=== PATIENT | female | born 1990 | race Two or more races ===

== ENCOUNTER 2021-10-10 05:45 | Inpatient (IN) | payer OTHER ==
[2021-10-10 06:35] VITALS: BMI 27.6
[2021-10-10] MEDS ORDERED: DEXTROSE 5%-LACTATED RINGERS 1,000 ML IV SCH (08:00)
[2021-10-10] MEDS ORDERED: DINOPROSTONE 10 MG VAGINAL SUPPOSITORY VG ONE (08:15)
[2021-10-10 09:43] LABS: BASO % 0.3 % (0-2.0); EOS % 0.3 % (0-4.5); HEMATOCRIT 32.9 % (32.4-45.2); HEMOGLOBIN 11.8 GM/dL (10.7-15.3); LYMPH % 18.1 % (8-40); MCH 31.1 pg (25.7-33.7); MCHC 35.7 g/dl (32.0-36.0); MEAN PLT VOLUME 8.8 fl (7.5-11.1); MONO % 8.5 % (3.8-10.2); NEUT % 72.8 % (42.8-82.8); PLATELET COUNT 232 10^3/uL (134-434); RBC 3.79 M/mm3 (3.60-5.2); RDW 13.4 % (11.6-15.6); WHITE BLOOD COUNT 8.4 K/mm3 (4.0-10.0)
[2021-10-10 09:50] LABS: INR 0.98 (0.83-1.09); PROTHROMBIN TIME (PATIENT) 11.3 SEC (9.7-13.0)
[2021-10-10 10:02] LABS: BLOOD UREA NITROGEN 8.1 mg/dL (7-18); CALCIUM 8.2 mg/dL (8.5-10.1)
[2021-10-10 10:06] LABS: CREATININE 0.7 mg/dL (0.55-1.3)
[2021-10-10] MEDS ORDERED: PROMETHAZINE HCL 25 MG/1 ML VIAL ONE (13:38)
[2021-10-10] MEDS ORDERED: BUTORPHANOL TARTRATE 2 MG/ML VIAL ONE (13:38)
[2021-10-10] MEDS ORDERED: PROMETHAZINE HCL 25 MG/1 ML VIAL IVPB ONE (14:30)
[2021-10-10] MEDS ORDERED: BUTORPHANOL TARTRATE 2 MG/ML VIAL IVPB ONE (14:30)
[2021-10-10] MEDS ORDERED: FENTANYL/BUPIVACAINE/NS/PF - PCEA - 50 ML DISP.SYRIN EP ONE ×3 (15:54→23:54)
[2021-10-10] MEDS ORDERED: OXYTOCIN 30 UNITS in 0.9% NS 30 UNIT/500 ML INFUS.BAG IVPB SCH (16:00)
[2021-10-10] MEDS ORDERED: BUPIVACAINE HCL/PF 0.25% (2.5MG/ML) 10 ML VIAL ONE (16:21)
[2021-10-10] MEDS ORDERED: PHENYLEPHRINE HCL 10 MG/1 ML SINGLE DOSE VIAL ONE (16:37)
[2021-10-10] MEDS ORDERED: OXYTOCIN 30 UNITS in 0.9% NS 30 UNIT/500 ML INFUS.BAG IVPB ONE ×2 (16:48→16:50)
[2021-10-10] MEDS ORDERED: NALOXONE HCL 0.4 MG/ML VIAL IVPUSH PRN (16:50)
[2021-10-10] MEDS ORDERED: FENTANYL/BUPIVACAINE/NS/PF - PCEA - 50 ML DISP.SYRIN EP SCH (17:00)
[2021-10-10] MEDS ORDERED: OXYTOCIN 20 UNITS in 0.9% NS 20 UNIT/1,000 ML INFUS.BAG IV ONE (20:11)
[2021-10-10] MEDS ORDERED: LIDOCAINE HCL 1% PRESERVATIVE FREE - 30ML VIAL ONE (20:11)
[2021-10-10] MEDS ORDERED: AMPICILLIN SODIUM 2 GM VIAL ONE (21:47)
[2021-10-10] MEDS ORDERED: ELECTROLYTE-148 SOLN 1,000 ML IV SCH (22:00)
[2021-10-10] MEDS ORDERED: AMPICILLIN - 2 GM in SODIUM CHLORIDE 100 ML IVPB ONE (22:00)
[2021-10-11] MEDS ORDERED: AMPICILLIN SODIUM 1 GM VIAL ONE (00:52)
[2021-10-11] MEDS ORDERED: AMPICILLIN - 1 GM in SODIUM CHLORIDE 100 ML IVPB SCH (02:00)
[2021-10-11] MEDS ORDERED: IBUPROFEN 600 MG TABLET (FP) PO ONE ×2 (05:00→05:06)
[2021-10-11] MEDS ORDERED: METHYLERGONOVINE MALEATE 0.2 MG/1 ML AMP IM PRN (07:02)
[2021-10-11] MEDS ORDERED: ACETAMINOPHEN 325 MG TABLET (FP) PO PRN (07:02)
[2021-10-11] MEDS ORDERED: BENZOCAINE 20% 57 GM BOTTLE TP PRN (07:02)
[2021-10-11] MEDS ORDERED: WITCH HAZEL 50% (TUCKS) 40 PAD/JAR PAD TP PRN (07:02)
[2021-10-11] MEDS ORDERED: BISACODYL 10 MG SUPP.RECT RC PRN (07:02)
[2021-10-11] MEDS ORDERED: BENZOCAINE 28 GM HEMORRHOIDAL OINTMENT TP PRN (07:02)
[2021-10-11] MEDS ORDERED: OXYTOCIN 20 UNITS in 0.9% NS 20 UNIT/1,000 ML INFUS.BAG IV SCH (07:15)
[2021-10-11] MEDS: PRENATAL VITAMINS W/ FOLIC ACID TABLET (FP) PO SCH (10:53)
[2021-10-12 07:39] LABS: BASO % 0.2 % (0-2.0); EOS % 0.3 % (0-4.5); HEMATOCRIT 28.5 % (32.4-45.2); HEMOGLOBIN 9.7 GM/dL (10.7-15.3); LYMPH % 15.1 % (8-40); MCH 30.1 pg (25.7-33.7); MCHC 34.2 g/dl (32.0-36.0); MEAN CELL VOLUME 88.1 fl (80-96); MEAN PLT VOLUME 9.3 fl (7.5-11.1); MONO % 6.9 % (3.8-10.2); NEUT % 77.5 % (42.8-82.8); PLATELET COUNT 223 10^3/uL (134-434); RBC 3.24 M/mm3 (3.60-5.2); RDW 13.5 % (11.6-15.6); WHITE BLOOD COUNT 19.6 K/mm3 (4.0-10.0)
[2021-10-12] MEDS: PRENATAL VITAMINS W/ FOLIC ACID TABLET (FP) PO SCH (09:31)
[2021-10-12 22:10] VITALS: TEMP 98.3
[2021-10-13 07:35] VITALS: BP 105/64; PULSE 84
[2021-10-13] MEDS: PRENATAL VITAMINS W/ FOLIC ACID TABLET (FP) PO SCH (09:32)
== END 2021-10-13 13:05 | disposition home or self-care (01) | DRG 560 ==
LOC: JDEL 05:45 → JLDR 06:05 → J3W 10-11 05:30
PROVIDERS: ADMIT Obstetrics & Gynecology; ATTEND Obstetrics & Gynecology
PROC: 3E0P7VZ Introduction of Hormone into Female Reproductive, Via Natural or Artificial Opening (ICD-10-PCS; 2021-10-10)
PROC: 10E0XZZ Delivery of Products of Conception, External Approach (ICD-10-PCS; principal; 2021-10-11)
PROC: 0W8NXZZ Division of Female Perineum, External Approach (ICD-10-PCS; 2021-10-11)
PROC: 0HQ9XZZ Repair Perineum Skin, External Approach (ICD-10-PCS; 2021-10-11)
DX: O42.02 Full-term premature rupture of membranes, onset of labor within 24 hours of rupture (principal); O70.0 First degree perineal laceration during delivery; Z3A.40 40 weeks gestation of pregnancy; Z37.0 Single live birth
CPT/HCPCS: 36415; 59025; 59409; 80048; 83986-QW; 85025; 85610; 85730; 86780; 86850; 86900; 86901; C9803-CS; G0463-25; U0003; U0005

== ENCOUNTER 2024-04-17 01:30 | Inpatient (IN) | payer OTHER ==
[2024-04-17] MEDS: ELECTROLYTE-148 SOLN 1,000 ML IV SCH (02:15)
[2024-04-17 03:08] LABS: BASO % 1.1 % (0-2.0); EOS % 0.2 % (0-4.5); HEMATOCRIT 40.9 % (32.4-45.2); HEMOGLOBIN 13.7 GM/dL (10.7-15.3); LYMPH % 13.7 % (8-40); MCH 29.6 pg (25.7-33.7); MCHC 33.6 g/dl (32.0-36.0); MEAN CELL VOLUME 88.1 fl (80-96); MEAN PLT VOLUME 8.8 fl (7.5-11.1); MONO % 7.6 % (3.8-10.2); NEUT % 77.4 % (42.8-82.8); PLATELET COUNT 300 10^3/uL (134-434); RBC 4.64 M/mm3 (3.60-5.2); RDW 14.3 % (11.6-15.6); WHITE BLOOD COUNT 13.6 K/mm3 (4.0-10.0)
[2024-04-17 03:25] LABS: CALCIUM 9.3 mg/dL (8.5-10.1)
[2024-04-17 03:26] LABS: BLOOD UREA NITROGEN 10.3 mg/dL (7-18)
[2024-04-17 03:27] LABS: INR 0.93 (0.83-1.09); PROTHROMBIN TIME (PATIENT) 10.5 SEC (9.7-13.0)
[2024-04-17 03:29] LABS: CREATININE 0.6 mg/dL (0.55-1.3)
[2024-04-17 03:30] LABS: ACTIVATED PTT 26.9 SECONDS (25.2-36.5)
[2024-04-17] MEDS ORDERED: FENTANYL/BUPIVACAINE/NS/PF - PCEA - 50 ML DISP.SYRIN EP ONE ×2 (03:51→07:46)
[2024-04-17] MEDS ORDERED: NALOXONE HCL 0.4 MG/ML VIAL IVPUSH PRN (04:10)
[2024-04-17] MEDS: FENTANYL/BUPIVACAINE/NS/PF - PCEA - 50 ML DISP.SYRIN EP SCH ×2 (04:25→11:04)
[2024-04-17 06:33] VITALS: BMI 29.8
[2024-04-17] MEDS ORDERED: OXYTOCIN 20 UNITS in 0.9% NS 20 UNIT/1,000 ML INFUS.BAG IV ONE ×2 (09:47→13:03)
[2024-04-17] MEDS ORDERED: LIDOCAINE HCL 1% PRESERVATIVE FREE - 30ML VIAL ONE (09:47)
[2024-04-17] MEDS ORDERED: ONDANSETRON 4 MG/2 ML VIAL ONE (10:14)
[2024-04-17] MEDS: ONDANSETRON 4 MG/2 ML VIAL IVPUSH ONE (10:15)
[2024-04-17] MEDS: OXYTOCIN 20 UNITS in 0.9% NS 20 UNIT/1,000 ML INFUS.BAG IV SCH (10:38)
[2024-04-17] MEDS ORDERED: ONDANSETRON 4 MG/2 ML VIAL IM PRN (10:40)
[2024-04-17] MEDS ORDERED: WITCH HAZEL 50% (TUCKS) 40 PAD/JAR PAD TP PRN (11:02)
[2024-04-17] MEDS ORDERED: BISACODYL 10 MG SUPP.RECT RC PRN (11:02)
[2024-04-17] MEDS ORDERED: BENZOCAINE 28 GM HEMORRHOIDAL OINTMENT TP PRN (11:02)
[2024-04-17] MEDS ORDERED: BENZOCAINE 20% 57 GM BOTTLE TP PRN (11:02)
[2024-04-17] MEDS ORDERED: METHYLERGONOVINE MALEATE 0.2 MG/1 ML AMP IM PRN (11:02)
[2024-04-17 11:24] LABS: HIV INTERPRETATION NEGATIVE (NEGATIVE)
[2024-04-17] MEDS: IBUPROFEN 600 MG TABLET (FP) PO PRN (12:14)
[2024-04-17] MEDS ORDERED: IBUPROFEN 600 MG TABLET (FP) PO ONE (12:14)
[2024-04-17] MEDS ORDERED: ACETAMINOPHEN 325 MG TABLET (FP) ONE (15:19)
[2024-04-17] MEDS: ACETAMINOPHEN 325 MG TABLET (FP) PO PRN (15:20)
[2024-04-18 08:31] LABS: BASO % 0.4 % (0-2.0); EOS % 0.4 % (0-4.5); HEMATOCRIT 31.1 % (32.4-45.2); HEMOGLOBIN 10.8 GM/dL (10.7-15.3); LYMPH % 19.8 % (8-40); MCH 30.7 pg (25.7-33.7); MCHC 34.9 g/dl (32.0-36.0); MEAN CELL VOLUME 87.9 fl (80-96); MONO % 8.6 % (3.8-10.2); NEUT % 70.8 % (42.8-82.8); PLATELET COUNT 244 10^3/uL (134-434); RBC 3.54 M/mm3 (3.60-5.2); RDW 14.2 % (11.6-15.6); WHITE BLOOD COUNT 13.6 K/mm3 (4.0-10.0)
[2024-04-18 09:56] VITALS: RESP 18
[2024-04-18] MEDS: DIPHTH,PERTUSS(ACELL),TET 0.5 ML DISP.SYRIN IM ONE (11:15)
[2024-04-18] MEDS ORDERED: SENNOSIDES/DOCUSATE COMBO (SENNA PLUS) TABLET (UD) PO PRN (22:00)
[2024-04-19 11:22] VITALS: BP 110/60; PULSE 77; TEMP 98.2
== END 2024-04-19 13:40 | disposition home or self-care (01) | DRG 560 ==
LOC: JDEL 01:30 → JLDR 02:15 → J3W 15:50
PROVIDERS: ADMIT Obstetrics & Gynecology; ATTEND Obstetrics & Gynecology
PROC: 0KQM0ZZ Repair Perineum Muscle, Open Approach (ICD-10-PCS; principal; 2024-04-17)
PROC: 10E0XZZ Delivery of Products of Conception, External Approach (ICD-10-PCS; 2024-04-17)
DX: O70.1 Second degree perineal laceration during delivery (principal); Z3A.40 40 weeks gestation of pregnancy; Z37.0 Single live birth
CPT/HCPCS: 36415; 59409; 80048; 85025; 85610; 85730; 86780; 86850; 86900; 86901; 87389; 90715